=== PATIENT | male | born 1995 | race Caucasian/White ===

== ENCOUNTER 2025-01-26 02:25 | Emergency (ER) | payer MEDICAID ==
[~2025-01-26] VITALS: Ht 172.7 cm; Wt 65.9 kg
--- NOTE | 2025-01-26 02:39 | Physician Documentation ---
History of Present Illness ~ Chief Complaint: Wrist pain Stated Complaint: WRIST PAIN Time Seen by MD: 02:36 HPI Patient presents to the emergency room with complaint of right wrist pain. He states he was skateboarding fell a proximally 4 hours prior to arrival. He states he woke up from his sleep with increased pain therefore came in to be evaluated. He has had nothing for the pain Medication Reconciliation Allergies: Coded Allergies: No Known Allergies (Unverified , 01/26/25) Review of Systems ROS All review of systems negative except as per HPI Physical Exam Vital Signs: Temperature: 97.7, Source: Temporal, Heart Rate: 67, Respiratory Rate: 18, BP: 133/77, Pulse Oximetry: 98, Weight: 65.900 Physical Exam General: Patient is awake, alert, oriented x4 in no acute distress Head: Normocephalic and atraumatic. Eyes: Conjunctival normal. EOMI. PERRL. ENT: Mucous membranes moist. Neck: Supple, trachea is midline. Chest: Clear to auscultation bilaterally without rales, rhonchi, or wheezes. There is no accessory muscle use or retractions. Cardiac: RRR without murmurs, gallops, or rubs. Abd: Soft, nondistended, nontender, with normoactive bowel sounds. No guarding, rebound, or rigidity. Extremities: Normal strength. Decreased range of motion of right wrist secondary to pain with associated mild swelling. Neurovascularly intact Progress Results/Orders Results/Orders Orders - CHAITANYA BLAKE MD Wrist, Complete (3vw Min) (01/26/25 03:25) Completed Orders - CHAITANYA BLAKE MD Wrist, Complete (3vw Min) (01/26/25 03:25) Ibuprofen Tablet (Motrin Tablet) (01/26/25 02:40) Acetaminophen 325mg Tablet (Tylenol Tabl (01/26/25 02:40) Medications Received in ER Medications (Trade) Dose Ordered Sig/Wagner Route PRN Reason Start Time Stop Time Status Last Admin Dose Admin (Motrin tablet) 800 mg ONCE ONCE PO 01/26/25 02:40 01/26/25 02:41 DC 01/26/25 02:44 800 MG (Tylenol tablet) 650 mg ONCE ONCE PO 01/26/25 02:40 01/26/25 02:41 DC 01/26/25 02:46 650 MG Vital Signs 01/26/25 02:31 Temp 97.7 Pulse 67 Resp 18 B/P (MAP) 133/77 Pulse Ox 98 Medical Decision Making Additional information obtaine: N/A Findings Patient presents to the emergency room for evaluation of wrist pain as per HPI. Differentials include but are not limited to fracture, dislocation, soft tissue injury, vascular injury. Physical exam is reassuring for good plethora and he had not suspect vascular injury. X-ray that has negative for fracture. He does have mild tenderness to that has topical snuffbox therefore we will place him in a thumb spica splint and is neurovascularly intact status post splint placement. Discussed with him the need to follow up with no improvement of symptoms for occult fracture. General Diff Dx:Considerations: Include: Contusion Shoulder Diff Dx:Consideration: Include: Bicipital tendonitis Elbow Diff Dx:Considerations: Include: DJD Wrist Diff Dx:Considerations: Include: Gout Hand Diff Dx:Considerations: Include: DJD Finger Diff Dx:Considerations: Include: Dislocation Departure Disposition: HOME / SELF CARE / HOMELESS Impression: Primary Impression: Wrist joint pain Condition: Stable Discharge Instructions: Wrist Fracture Treated With Immobilization Additional Instructions: [id number] ibuprofen and Tylenol can be taken together for pain. Ice may be of benefit. If no improvement of her one-week follow up with your doctor to read perform x-ray to look for occult fracture Referrals: NO PRIMARY CARE PROVIDER (PCP) Signature Scribe Signature: No scribe Attestation: The note accurately reflects work and decisions made by me.Chaitanya Blake MD 01/26/25 03:44 CHAITANYA BLAKE MD Jan 26, 2025 02:39
[2025-01-26] MEDS: ibuprofen tablet 400 MG TABLET PO ONE (02:44)
--- NOTE | 2025-01-26 03:50 | RADIOLOGY REPORT ---
CLINICAL INDICATION: pain TECHNIQUE: DI WRIST, COMPLETE (3VW MIN) Comparison: None FINDINGS/IMPRESSION: : Well corticated fragment dorsally adjacent to the carpal bones suggestive of a subacute to chronic triquetral avulsion fracture. There is otherwise no evidence of acute fracture or dislocation. Soft tissues are unremarkable.
[2025-01-26 04:16] VITALS: BP 128/78; PULSE 65; RESP 18; TEMP 97.7; O2SAT 98
== END 2025-01-26 04:18 | disposition home or self-care (01) ==
LOC: ER 02:28
DX: M25.531 Pain in right wrist (principal); V00.131A Fall from skateboard, initial encounter; Y93.51 Activity, roller skating (inline) and skateboarding; Y92.89 Other specified places as the place of occurrence of the external cause; Y99.8 Other external cause status
CPT/HCPCS: 29125; 73110; 99284

== ENCOUNTER 2025-03-11 14:30 | Emergency (ER) | payer MEDICAID ==
[~2025-03-11] VITALS: Ht 177.8 cm; Wt 61.4 kg
[2025-03-11 14:37] VITALS: BP 122/64; PULSE 60; RESP 16; TEMP 98.4; O2SAT 98
== END 2025-03-11 16:15 | disposition left against medical advice (07) ==
LOC: ER 14:30
DX: K08.89 Other specified disorders of teeth and supporting structures (principal)
CPT/HCPCS: 99281

== ENCOUNTER 2025-03-13 13:16 | Emergency (ER) | payer MEDICAID ==
[~2025-03-13] VITALS: Ht 175.3 cm; Wt 65.9 kg
[2025-03-13 13:21] VITALS: TEMP 98
--- NOTE | 2025-03-13 15:28 | Physician Documentation ---
HPI ~ General Chief Complaint: Tooth Problem Stated Complaint: TOOTH ABCESS Time Seen by MD: 14:33 History of Present Illness HPI Comment Is a very pleasant 29-year-old male that presents to the emergency department for evaluation of acute on chronic dental pain. Patient reports that he has swelling to his lower left jaw and cheek. Patient reports he has a significant history of fractured teeth with dental caries. Patient does not currently have a dentist. Patient denies fever chills nausea vomiting airway difficulties or difficulty swallowing at this time. Medication Reconciliation Allergies: Coded Allergies: No Known Allergies (Unverified , 03/11/25) Scheduled Amox Tr/Potassium Clavulanate 875/125 MG (Augmentin 875/125 MG), 1 TAB PO Q12H Physical Exam Vital Signs: Temperature: 98.0, Heart Rate: 70, Respiratory Rate: 16, BP: 114/60, Pulse Oximetry: 100, Weight: 65.910 Oxygen Flow Rate: 0 Progress Results/Orders Results/Orders Completed Orders - VANGIE COLIN Ketorolac Trometh 15mg/Ml Vial (Toradol (03/13/25 15:25) Acetaminophen 325mg Tablet (Tylenol Tabl (03/13/25 15:25) Amox Tr/Potassium Clavulanate (Augmentin (03/13/25 15:25) Medications Received in ER Medications (Trade) Dose Ordered Sig/Wagner Route PRN Reason Start Time Stop Time Status Last Admin Dose Admin (Toradol injection) 30 mg ONCE ONCE IM 03/13/25 15:25 03/13/25 15:27 DC 03/13/25 15:50 30 MG (Tylenol tablet) 975 mg ONCE ONCE PO 03/13/25 15:25 03/13/25 15:27 DC 03/13/25 15:46 975 MG (Augmentin 875-125mg tablet) 1 tab ONCE ONCE PO 03/13/25 15:25 03/13/25 15:27 DC 03/13/25 15:46 1 TAB Vital Signs 03/13/25 03/13/25 03/13/25 13:21 15:50 15:51 Temp 98.0 Pulse 70 70 Resp 16 17 14 B/P (MAP) 114/60 133/72 Pulse Ox 100 96 O2 Flow Rate 0 Medical Decision Making Additional information obtaine: other Findings Chief Complaint: Acute on chronic tooth pain History of Present Illness: 29-year-old male presents to the emergency department with acute exacerbation of chronic tooth pain. Patient reports multiple dental caries and fractured teeth affecting both upper and lower jaws bilaterally. Patient has not received recent dental care and has not been treated with antibiotics for this condition. Patient denies fever, chills, nausea, vomiting, or diarrhea. Physical Examination: Examination reveals obvious swelling with abscess formation at the second molar on the lower left jaw. No overt lymphadenopathy noted on the ipsilateral side. Airway assessment demonstrates no compromise or concern. Vital signs stable without fever. Assessment: Localized acute apical abscess, left mandibular second molar, in the setting of multiple dental caries and poor dentition. This patient presents with a localized acute apical abscess characterized by spontaneous pain, purulent material formation, and localized swelling without evidence of fascial space involvement, lymph node involvement, fever, or systemic symptoms. The absence of systemic involvement and airway compromise indicates this can be managed in the outpatient setting with antibiotics and urgent dental referral. Medical Decision-Making: The complexity of this case is moderate given the need for antibiotic therapy, pain management, and coordination of urgent dental follow-up for definitive treatment. Antibiotic Selection: Per [employer] guidelines, immunocompetent adults with pulp necrosis and localized acute apical abscess should receive oral antibiotics when definitive dental treatment is not immediately available. Amoxicillin-clavulanate 875 mg orally twice daily for 10 days was prescribed as appropriate therapy for this odontogenic infection. While amoxicillin alone is considered first-line therapy, amoxicillin-clavulanate is an acceptable alternative and may be used as second-line therapy for patients who fail to respond to amoxicillin alone. The patient was counseled to discontinue antibiotics 24 hours after symptoms resolve and to seek reevaluation if symptoms worsen or fail to improve within 3 days. Pain Management: Ketorolac 30 mg IM and acetaminophen 1 g orally were administered in the emergency department for acute pain control. Per [employer] pain management guidelines, NSAIDs alone or in combination with acetaminophen are first-line therapy for dental pain and are superior to opioid medications. The combination of NSAIDs and acetaminophen has been shown to be effective in managing dental pain. Disposition and Follow-up: Patient is being discharged home with urgent dental referral for definitive conservative dental treatment (incision and drainage, root canal treatment, or extraction as indicated). Patient was instructed that definitive dental treatment should not be delayed and should occur within 1-2 days. Patient was counseled to return to the emergency department or call if condition deteriorates, if pain fails to lessen over time, if swelling progresses, or if signs of systemic involvement develop (fever, malaise, difficulty swallowing, difficulty breathing, or facial swelling extending beyond the localized area). Patient Education: Patient counseled on the importance of urgent dental follow- up, proper antibiotic compliance, signs and symptoms requiring immediate reevaluation, and expectations for pain management. Patient verbalized understanding of discharge instructions and follow-up plan. Differential Dx:Considerations: Include: Alveolar fracture, Alveolar osteitis, ANUG, Facial Cellulitis, Periapical abscess, Peridontal abscess, Post-extraction bleeding, Pulpitis, Tooth avulsion, Tooth eruption, Tooth Fracture, Trigeminal neuralgia, Tooth subluxation, Other Departure Disposition: 01 HOME / SELF CARE / HOMELESS Impression: Primary Impression: Toothache Additional Impressions: Dental caries Dental abscess Condition: Stable Discharge Instructions: Dental Caries, Adult, Dental Abscess, Dental Pain Additional Instructions: Your Diagnosis You were treated today for a tooth infection (abscess) on your lower left second molar. This infection is caused by bacteria inside the tooth and requires dental treatment to fully resolve. Medications You Received Today Toradol (ketorolac) 30 mg - given by injection for pain relief Tylenol (acetaminophen) 1,000 mg - given by mouth for pain relief Medications to Take at Home Antibiotic: Augmentin (amoxicillin-clavulanate) 875 mg Take one pill by mouth twice daily (morning and evening) for 10 days Take with food to reduce stomach upset Important: Stop taking this antibiotic 24 hours after your symptoms completely go away, even if you have pills left over Do not save leftover antibiotics or share them with others - dispose of them safely at a local medication disposal center Call your dentist or doctor if: Your infection gets worse while taking the antibiotic You develop diarrhea (3 or more loose bowel movements per day), fever, or severe stomach cramping - these could be serious side effects Pain Management at Home For the best pain relief, you can take ibuprofen and Tylenol together: Ibuprofen 400-600 mg every 6 hours as needed (do not exceed 2,400 mg in 24 hours) Tylenol (acetaminophen) 1,000 mg every 6 hours as needed (do not exceed 4,000 mg in 24 hours) These medications work better together than either one alone for dental pain. You should expect some pain, and these medications should make your pain manageable. What to Expect Your pain should start to improve within 2-3 days The swelling may take several days to go down The antibiotic alone will NOT cure your infection - you must see a dentist for definitive treatment Critical: You MUST See a Dentist You need to see a dentist within 1-2 days for definitive treatment. The antibiotic is only a temporary measure.Your tooth will need one of the following treatments to cure the infection: Root canal treatment Drainage of the abscess Tooth extraction Without dental treatment, the infection will come back and could spread. [1][3] When to Return to the Emergency Department Immediately Come back to the emergency department or call 911 if you develop any of these warning signs: Difficulty breathing or swallowing Swelling that spreads to your face, neck, or under your jaw Fever (temperature over 100.4F) Feeling very sick, weak, or tired (malaise) Your pain gets worse instead of better New swelling in your mouth or face Difficulty opening your mouth When to Call Your Dentist or Doctor Contact your dentist or primary care doctor if: Your pain does not start to improve within 2-3 days You cannot get a dental appointment within 1-2 days You have questions about your medications Your symptoms are not getting better while taking the antibiotic General Care Instructions Rinse your mouth gently with warm salt water (1/2 teaspoon salt in 8 ounces of warm water) several times a day [place] your teeth gently, including around the infected area Avoid chewing on the affected side Stay well hydrated and eat soft foods if chewing is painful Get adequate rest to help your body fight the infection Important Reminders Do not delay dental treatment - the infection will not go away on its own Take your antibiotic exactly as prescribed Use the pain medications as directed Watch for warning signs that require immediate medical attention Keep your dental appointment If you have any questions or concerns, please call your dentist or return to the emergency department. Departure Forms: Excuse form Work or School Excused From: Work Excuse beginning now through the following date: Mar 13, 2025 May Return but still avoid physical Activity from now until: Mar 13, 2025 May Return to full physical activity as of: Mar 13, 2025 Additional Instructions: This patient was seen in the emergency department today for dental abscess. Patient has extensive history of dental caries and fractures. Patient would benefit from a dentist visit I am offering a referral today from the emergency department. Please see this patient as soon as you are able in your clinic. Thank you. Referrals: NO PRIMARY CARE PROVIDER (PCP) Prescriptions Amox Tr/Potassium Clavulanate 875/125 MG (Augmentin 875/125 MG) 875 Mg-125 Mg Tablet 1 TAB PO Q12H for 10 Days, #20 TAB Prov: VANGIE COLIN 03/13/25 Education Educated: Patient Educated regarding: diagnosis, treatment, need for follow up Signature Scribe Signature: A Attestation: Scribed for Vangie Colin by DAVID Zhang . 03/13/25 15:31 VANGIE COLIN Mar 13, 2025 15:28
[2025-03-13] MEDS ORDERED: AMOX-580 PO (15:31)
[2025-03-13] MEDS: amox tr/potassium clavulanate 875/125mg TAB PO ONE (15:46)
[2025-03-13] MEDS: ketorolac trometh 15mg/ml vial 15 MG/ML ML IM ONE (15:50)
[2025-03-13 15:51] VITALS: BP 133/72; PULSE 70; RESP 14; O2SAT 96
== END 2025-03-13 15:53 | disposition home or self-care (01) ==
LOC: ER 13:16
DX: K08.89 Other specified disorders of teeth and supporting structures (principal); K02.9 Dental caries, unspecified; Z88.0 Allergy status to penicillin
CPT/HCPCS: 96372; 99283; J1885